=== PATIENT | female | born 1990 | race Caucasian/White ===

== ENCOUNTER 2023-10-20 07:51 | Inpatient (IN) ==
--- OUTSIDE RECORDS SUMMARY | 2023-10-20 08:31 | External Medical Summary | Summary of Care ---
Author Name Unknown Organization [facility] Address [address] [place] [address] Phone [phone] Care Team Providers Care Phlebotomy Support Tech Name Role Phone Bruno Alfaro MD Primary Care Provider + Reason for Visit * Reason Comments Return Visit Encounter Details Date Type Department Care Team (Late st Contact Info) Description 10/10/2023 3:15 PM EDT Office Visit Gynecology/Obstetric s [facility] [address] [facility] [place] [address] Abbie Ascencio MD [address] [facility] [place] [address] 39 weeks gestation of *; Encounter for supervision of normal first in third trimester Allergies No known active allergiesdocumented as of this encounter (statuses as of 10/10/2023) Medications Medication Sig Dispensed Refills Start Date End Date Status 28-0.8 MG Oral Tablet Take by mouth. Active documented as of this encounter (statuses as of 10/10/2023) Active Problems Problem Noted Date Diagnosed Date Encounter for supervision of normal first in third trimester 09/22/2023 Routine general medical exam ination at a health care facility 07/18/2013 Overview: 10/07 pap WNL. No transformation zone. Killian 1-3y. Mood swings w/loestrin. Trial loovral better. Trouble remembering to take, wants Mirena Contraception management 07/18/2013 Estimated Date of Delivery Comme nts Yes 10/13/2023 Based on Ultraso und documented as of this encounter (statuses as of 10/10/2023) Resolved Problems Problem Noted Date Diagnosed Date Resolved Date NO KNOWN PROBLEMS 07/18/2013 documented as of this encounter (statuses as of 10/10/2023) Immunizations Name Administration Dates Next Due HEP A - Hepatitis A (Adult > 18 yrs) 09/17/2008 HPV Vaccine, 4-Valent 06/06/2012, 012,12/08/2011,09/15(Deferred: Patient Refused) Hepatitis A, Ped/Adol., 18 y ear and below, 2-Dose 03/25/2009 Meningococcal Conjugate Vacc ine (Menactra/Menveo) 07/20/2013,09/05/2007 PPD 07/18/2013,12/08/2011 Seasonal Influenza, Split, I IV3, With Preserve, Inj 12/08/2011,01/04/2011,02/02/2010,02/04,02/08/2006 TDAP (age 10 and older)(Boostrix) 08/08/2017 TDAP, Age 7 and older, IM (Adacel) 09/11/2006 documented as of this encounter Social History Tobacco Use Types Packs/Day Years Used Date Smoking Tobacco: Never Smokeless Tobacco: Never Comments:non smoking househo ld Alcohol Use Standard Drinks/Week Comments Yes 0 (1 standard drink = 0.6 oz pur e alcohol) no binge PHQ-2 Answer Date Recorded PHQ-2 Score 0 01/28/2018 Hunger Vital Sign Answer Date Recorded Within the past 12 months, y ou worried that your food would run out before you got the money to buy more. Never true 08/24/19 24 Within the past 12 months, t he food you bought just didn't last and you didn't have money to get more. Never true 08/24/2023 [place] Depression Scale Answer Date Recorded [place] Depression Scale Total 3 09/22/2023 The thought of harming myself has occurred to me . Never 09/22/2023 Childcare Answer Date Recorded Do you feel overwhelmed with taking care of a child, family member or friend? No 08/24/2023 Does your family need help f inding childcare? (Household - for ages 0-17 years) Not on file 08/24/2023 Clothing Answer Date Recorded Have you been unable to get clothing when it was really needed? No 08/24/2023 Is your family able to get c lothes or diapers when needed? (Household - for ages 0-17 years) Not on file 08/24/2023 Personal Safety Answer Date Recorded Do you feel unsafe or have concerns for your saf ety? No 08/24/2023 Do you have concerns for you r family's safety? (Household - for ages 0-17 years) Not on file 08/24/2023 Utilities Answer Date Recorded Do you have trouble paying y our heating, water, or electric bill? No 08/24/2023 Is your family able to pay t he heat, water, or electric bill? (Household - for ages 0-17 years) Not on file 08/24/2023 Does your family have access to good internet? (Household - for ages 0-17 years) Not on file 08/24/2023 Employment Status Answer Date Recorded Are you unemployed or without regular income? No 08/24/2023 Does the household have a re lar source of income? (Household - for ages 0-17 years) Not on file 08/24/2023 Social Connections Answer Date Recorded How often do you feel lonely or isolated from th ose around you? Never 08/24/2023 Financial Resource Strain Answer Date R ecorded Do you have any trouble payi ng for your medications, or do you think you might in the future? No 08/24/2023 Does your family have troubl e paying for medicine? (Household - for ages 0-17 years) Not on file 08/24/2023 Transportation Needs Answer Date Record ed READ ONLY Do you have troubl e getting a ride to medical visits or work? Never True 08/24/2023 Does your family have a hard time getting a ride to doctors visits? (Household - for ages 0-17 years) Not on file 08/24/2023 Has lack of transportation k ept you from medical appointments, meetings, work, or from getting things needed for daily living? Check all that apply. (Adult - for ages 18 years and over) Not on file 08/24/2023 Do you (or your family) have trouble finding or paying for a ride (transportation)? (Household - for ages 0-17 years) Not on file 08/24/2023 Housing Stability Answer Date Recorded Do you currently live in a s helter or have no steady place to sleep at night? No 08/24/2023 READ ONLY Do you think you a re at risk of becoming homeless? No 08/24/2023 Does your family worry about paying for your home or becoming homeless? (Household - for ages 0-17 years) Not on file 0 08/24/2023 Are you homeless or worried that you might be in the future? (Adult - for ages 18 years and over) Not on file Are you (or your family) darnell eless or worried that you might be in the future? (Household - for ages 0-17 years) Not on file Food Insecurity Answer Date Recorded Do you need food for this week? No 08/24/2023 Are you able to get enough f ood for your family? (Household - for ages 0-17 years) Not on file 08/24/2023 Does your family need food t his week? (Household - for ages 0-17 years) Not on file 08/24/2023 Do you always have enough fo od for your family? (Household - for ages 0-17 years) Not on file 08/24/2023 Estimated Date of Delivery Comme nts Yes 10/13/2023 Based on Ultraso und Sex and Gender Information Value Date Recorded Sex Assigned at Female 08/24/2023 1:36 PM EDT Gender Identity Female 08/24/2023 1:36 PM EDT Sexual Orientation Straight 08/24/2023 1: 36 PM EDT Job Start Date Occupation Industry Not on file Not on file Not on file documented as of this encounter Last Filed Vital Signs Vital Sign Reading Time Taken Comments Blood Pressure 112/64 10/10/2023 3:19 PM EDT Pulse - - Temperature - - Respiratory Rate - - Oxygen Saturation - - Inhaled Oxygen Concentration - - Weight 80.3 kg (177 lb) 10/10/2023 3:19 PM EDT Height 175.3 cm (5' 9") 10/10/2023 3:19 PM EDT Body Mass Index 26.14 10/10/2023 3:19 PM EDT documented in this encounter Progress Notes * Abbie Ascencio MD - 10/10/2023 3:15 PM EDT Patient is 33 year old at 39 4/7 weeks who presents for TJ visit Denies contractions, leaking of fluid, or vaginal bleeding. Noted good movement Denies headache, blurry vision, RUQ or epigastric pain. Planning to breastfeed, has pump ordered but has not received yet. Unsure about control . Planning for blood products and epidural in labor. Cramping last night Problem list reviewed BP 112/64 | Ht 1.753 m (5' 9") | Wt 80.3 kg (177 lb) | LMP 12/11/2022 | BMI 26.14 kg/m | BSA 1.98m FH: 38 FHT: 134 Plan: Labor and preeclampsia warnings reviewed IOL scheduled for post dates at [facility] 10/20/2023 RTC 1 weeks V Sonu GTZ PhD documented in this encounter Nursing Notes * Cassie Hdez LPN - 10/10/2023 3:27 PM EDT 39w4d Given iol instructions, scheduled 10/19 Denies concerns. Baby has more hiccups. documented in this encounter Plan of Treatment Upcoming Encounters Date Type Department Care Team (Late st Contact Info) Description 10/18/2023 11:45 AM EDT Office Visit Gynecology/Obstetrics [facility] [address] [place] [address] Mirta Wing PA-C [address] [place] [address] Health Maintenance Due Date Last Done Comments Depression Screening 08/08/2018 08/08/2017 Pap Smear 08/08/2020 08/08/2017, 07/25, 10/24/2013 Cervical Cancer Screening 2022 HPV/Co-Test 2022 COVID-19 Vaccine ( season) 2022 Influenza Vaccine (FLU shot) (#1) 2023 12/08/2011, 01/04/2011, 02/02/2010, Additional history exists DTaP,Tdap,and Td Vaccines (8 - Td or Tdap) 08/09/2027 08/08/2017, 09/11/2006, 06/24/1997, Additional history exists Hepatitis B Vaccine Completed 03/17/1993, 1992, 1992 HPV (Gardasil) Vaccine Completed , 02/08/2012, 12/08/2011 MENINGOCOCCAL (MENACTRA/MENVEO) Aged Out 07/20/2013, 09/05/2007 No longer eligibl e based on patient's age to complete this topic Pneumococcal Vaccine: Pediatrics (0 to 5 Years) and At-Risk Patients (6 to 64 Years) Aged Out No longer eligible based on patient's age to complete this topic documented as of this encounter Medical Devices Not on filedocumented as of this encounter Visit Diagnoses Diagnosis 39 weeks gestation of - Primary state, incidental Encounter for supervision of normal first in third trimester Supervision of normal first documented in this encounter Care Teams Phlebotomy Support Tech Relationship Specialty Start Date End Date Bruno Alfaro MD PCP - General Family Medicine 07/28/15 documented as of this encounter
--- OUTSIDE RECORDS SUMMARY | 2023-10-20 08:31 | External Medical Summary | Summary of Care ---
Author Name Unknown Organization [facility] Address [address] [facility] [place] [address] Phone [phone] Care Team Providers Care Cardiology Teacher Name Role Phone Bruno Alfaro MD Primary Care Provider + Reason for Visit * Reason Comments Return Visit Encounter Details Date Type Department Care Team (Late st Contact Info) Description 10/18/2023 11:45 AM EDT Office Visit Gynecology/Obstetric s Jessy [facility] [address] [place] [address] Mirta Wing PA-C [address] [place] [address] Encounter for supervision of normal first in third trimester* Allergies No known active allergiesdocumented as of this encounter (statuses as of 10/18/2023) Medications Medication Sig Dispensed Refills Start Date End Date Status 28-0.8 MG Oral Tablet Take by mouth. Active documented as of this encounter (statuses as of 10/18/2023) Active Problems Problem Noted Date Diagnosed Date [...] as of this encounter (statuses as of 10/18/2023) Resolved Problems Problem Noted Date Diagnosed Date Resolved Date NO KNOWN PROBLEMS 07/18/2013 documented as of this encounter (statuses as of 10/18/2023) Immunizations Name Administration Dates Next Due HEP [...] money to get more. Never true 08/24/2023 [place] Depression Scale Answer Date Recorded [place] Depression Scale Total 3 09/22/2023 The thought [...] Sign Reading Time Taken Comments Blood Pressure 98/62 10/18/2023 11:50 AM EDT Pulse - - Temperature - - Respiratory Rate - - Oxygen Saturation - - Inhaled Oxygen Concentration - - Weight 80.3 kg (177 lb) 10/18/2023 11:50 AM EDT Height - - Body Mass Index 26.14 10/10/2023 3:19 PM EDT documented in this encounter Progress Notes * Mirta Wing PA-C - 10/18/2023 12:05 PM EDT 40w5d No complaints. Ready for delivery. Has IOL scheduled in 2 days. No contractions, LOF, VB. Baby is active. Has information she needs for IOL. Defers cervical check today upon offering to patient. RTC for PP visits. Labor precautions. Mirta Wing PA-C * Yamini Hernandez MED ASSIST - 10/18/2023 11:50 AM EDT 40w5d Denies vaginal bleeding/rom + movements Pelvic cramping No concerns documented in this encounter Plan of Treatment Health Maintenance Due Date Last Done Comments [...] 03/17/1993, 1992, 1992 HPV (Gardasil) Vaccine Completed 3, 02/08/2012, 12/08/2011 MENINGOCOCCAL (MENACTRA/MENVEO) Aged Out 07/20/2013, [...] as of this encounter Visit Diagnoses Diagnosis Encounter for supervision of normal first in third trimester- Primary Supervision of normal first documented in this encounter Care Teams Cardiology Teacher Relationship Specialty Start Date End Date Bruno Alfaro MD PCP - General Family Medicine 07/28/15 documented as of this encounter
--- OUTSIDE RECORDS SUMMARY | 2023-10-20 08:32 | External Medical Summary | Summary of Care ---
Author Name Unknown Organization [facility] Address [address] [place] [address] Phone [phone] Care Team Providers Care Fans Clerk Name Role Phone Bruno Alfaro MD Primary Care Provider + Encounter Details Date Type Department Care Team (Late st Contact Info) Description 09/29/2023 Telephone Gynecology/Obstetrics [facility] [address] [place] [address] Mirta Wing PA-C [address] [place] [address] Allergies No known active allergiesdocumented as of this encounter (statuses as of 09/29/2023) Medications Medication Sig Dispensed Refills Start Date End Date Status 28-0.8 MG Oral Tablet Take by mouth. Active documented as of this encounter (statuses as of 09/29/2023) Active Problems Problem Noted Date Diagnosed Date [...] as of this encounter (statuses as of 09/29/2023) Resolved Problems Problem Noted Date Diagnosed Date Resolved Date NO KNOWN PROBLEMS 07/18/2013 documented as of this encounter (statuses as of 09/29/2023) Immunizations Name Administration Dates Next Due HEP [...] money to get more. Never true 08/24/2023 [place] Depression Scale Answer Date Recorded [place] Depression Scale Total 3 09/22/2023 The thought [...] No 08/24/2023 Does the household have a [facility] source [facility]? (Household - for ages [...] on file documented as of this encounter Plan of Treatment Upcoming Encounters Date Type Department Care Team (Late st Contact Info) Description 10/06/2023 10:45 AM EDT Office Visit Gynecology/Obstetrics [facility] [address] [place] [address] Mirta Wing PA-C [address] [place] [address] Health Maintenance Due Date Last Done Comments [...] Not on filedocumented as of this encounter Care Teams Fans Clerk Relationship Specialty Start Date End Date Bruno Alfaro MD PCP - General Family Medicine 07/28/15 documented as of this encounter
--- OUTSIDE RECORDS SUMMARY | 2023-10-20 08:32 | External Medical Summary ---
Author Name Unknown Address Unknown Organization [facility] - [address] [place] [address] Laboratory Report Ordering Provider Test Date Status REBECCA ARMSTRONG 09/22/2023 15:04:36 Final Observation Date Value Abnormality Reference (Units ) Status Hep C Ab 09/22/2023 15:04:36 Negative Negative Final Further HCV quantitative erica ting not performed per protocol. Performing Location [facility] - [address] [place] [id number]
--- OUTSIDE RECORDS SUMMARY | 2023-10-20 08:32 | External Medical Summary | Summary of Care ---
Author Name Unknown Organization [facility] Address [address] [place] [address] Phone [phone] Care Team Providers Care Marketing Professional Name Role Phone Bruno Alfaro MD Primary Care Provider + Reason for Visit * Reason Onset Date Comments Initial Visit 08/09/2023 Encounter Details Date Type Department Care Team (Late st Contact Info) Description 08/09/2023 Telephone Gynecology/Obstetrics [facility] [address] [place] [address] Services, Scheduling [address] [place] [address] Initial Visit Allergies No known active allergiesdocumented as of this encounter (statuses as of 08/10/2023) Medications Medication Sig Dispensed Refills Start Date End Date Status fexofenadine (SUSANNAH) 180 MG TabletIndications:S easonal allergic rhinitis due to pollen Take 1 Tab by mouth daily as needed for Allergies. 30 Tab 11 08/08/2017 Active fluticasone (FLONASE) 50 MCG/ACT nasal sprayIndications:Se asonal allergic rhinitis due to pollen Administer 2 Sprays into each nostril daily. 1 Inhaler 5 08/08/2017 Active documented as of this encounter (statuses as of 08/10/2023) Active Problems Problem Noted Date Diagnosed Date Routine general medical exam ination at a health care facility 07/18/2013 Overview: 10/07 pap WNL. No transformation zone. Killian 1-3y. Mood swings w/loestrin. Trial loovral better. Trouble remembering to take, wants Mirena Contraception management 07/18/2013 documented as of this encounter (statuses as of 08/10/2023) Resolved Problems Problem Noted Date Diagnosed Date Resolved Date NO KNOWN PROBLEMS 07/18/2013 documented as of this encounter (statuses as of 08/10/2023) Immunizations Name Administration Dates Next Due HEP A - Hepatitis A (Adult > 18 yrs) 09/17/2008 HPV Vaccine, 4-Valent 06/06/2012, 012,12/08/2011,09/15(Deferred: Patient Refused) Hep A - Hepatitis A (ped/ado le, 1-18 Yrs) 03/25/2009 Meningococcal Conjugate Vacc ine (Menactra/Menveo) 07/20/2013,09/05/2007 PPD 07/18/2013,12/08/2011 Seasonal Influenza, Split, I IV3, With Preserve, Inj 12/08/2011,01/04/2011,02/02/2010,02/04,02/08/2006 TDAP (age 10 and older)(Boostrix) 08/08/2017 TDAP (age 11 and older)(Adacel) 09/11/2006 documented as of this encounter Social History Tobacco Use Types Packs/Day Years Used Date Smoking Tobacco: Never Smokeless Tobacco: Never Comments:non smoking househo ld Alcohol Use Standard Drinks/Week Comments Yes 0 (1 standard drink = 0.6 oz pur e alcohol) no binge PHQ-2 Answer Date Recorded PHQ-2 Score 0 01/28/2018 Sex and Gender Information Value Date Recorded Sex Assigned at Not on file Gender Identity Not on file Sexual Orientation Not on file documented as of this encounter Miscellaneous Notes * Telephone Encounter - Yamini Hernandez MED ASSIST - 08/10/2023 11:41 AM EDT Appts scheduled * Telephone Encounter - Mayuri Moreira OSA - 08/09/2023 1:57 PM EDT LMOM * Telephone Encounter - Genoveva Frazier RN - 08/09/2023 11:11 AM EDT Patient will need scheduled for NOB phone intake and in person NOB visit. Please try and schedule the week of September 12, or soonest available that she can make work. Patient will need to bring all her current records with her, or have them faxed over prior to appts. * Telephone Encounter - Leah Fajardo OSA - 08/09/2023 10:48 AM EDT Pt is transferring care from [place], [place]. Approx due date October 12. Please assist with scheduling. Pt will be here next month end of August. documented in this encounter Plan of Treatment Upcoming Encounters Date Type Department Care Team (Late st Contact Info) Description 09/05/2023 1:00 PM EDT Nurse Only Gynecology/Obstetrics [facility] [address] [place] [address] Gw, Nurse Vp [facility] [address] [place] [address] 09/22/2023 4:30 PM EDT Office Visit Gynecology/Obstetrics Jessy Cantu [address] [place] [address] Mirta Wing PA-C [address] [place] [address] Health Maintenance Due Date Last Done Comments Hepatitis C Screening 2010 Depression Screening 08/08/2018 08/08/2017 Pap Smear 08/08/2020 08/08/2017, 07/25, 10/24/2013 Cervical Cancer Screening 2022 HPV/Co-Test 2022 COVID-19 Vaccine ( season) 2022 Influenza Vaccine (FLU shot) (Season Ended) 2023 12/08/2011, 01/04/2011, 02/02/2010, Additional history exists DTaP,Tdap,and Td Vaccines (8 - Td or Tdap) 08/09/2027 08/08/2017, 09/11/2006, 06/24/1997, Additional history exists Hepatitis B Completed 03/17/1993, 06/26, 1992 GARDASIL-HPV IMMUNIZATION SERIES Completed 06/06/2012, 02/08/2012, 12/08/2011 MENINGOCOCCAL (MENACTRA/MENVEO) Aged Out 07/20/2013, 09/05/2007 No longer eligibl e based on patient's age to complete this topic Pneumococcal Vaccine: Pediatrics (0 to 5 Years) and At-Risk Patients (6 to 64 Years) Aged Out No longer eligible based on patient's age to complete this topic documented as of this encounter Medical Devices Not on filedocumented as of this encounter Care Teams Marketing Professional Relationship Specialty Start Date End Date Bruno Alfaro MD PCP - General Family Medicine 07/28/15 documented as of this encounter
--- OUTSIDE RECORDS SUMMARY | 2023-10-20 08:32 | External Medical Summary | Summary of Care ---
Author Name Unknown Organization [facility] Address [address] [place] [address] Phone [phone] Care Team Providers Care Jewel Stripper Name Role Phone Bruno Alfaro MD Primary Care Provider + Reason for Visit * Reason Comments New Visit Encounter Details Date Type Department Care Team (Late st Contact Info) Description 09/22/2023 2:30 PM EDT Office Visit Gynecology/Obstetric s [facility] [address] [place] [address] Mirta Wing PA-C [address] [place] [address] Encounter for supervision of normal first in third trimester* Allergies No known active allergiesdocumented as of this encounter (statuses as of 09/22/2023) Medications Medication Sig Dispensed Refills Start Date End Date Status 28-0.8 MG Oral Tablet Take by mouth. Active documented as of this encounter (statuses as of 09/22/2023) Active Problems Problem Noted Date Diagnosed Date [...] as of this encounter (statuses as of 09/22/2023) Resolved Problems Problem Noted Date Diagnosed Date Resolved Date NO KNOWN PROBLEMS 07/18/2013 documented as of this encounter (statuses as of 09/22/2023) Immunizations Name Administration Dates Next Due HEP [...] money to get more. Never true 08/24/2023 Childcare Answer Date Recorded Do you feel [...] No 08/24/2023 Does the household have a [facility] source [facility] income? (Household - for [...] Sign Reading Time Taken Comments Blood Pressure 108/62 09/22/2023 2:35 PM EDT Pulse - - Temperature - - Respiratory Rate - - Oxygen Saturation - - Inhaled Oxygen Concentration - - Weight 78.1 kg (172 lb 3.2 oz) 09/22/2023 2:35 P M EDT Height 175.3 cm (5' 9") 09/22/2023 2:35 PM EDT Body Mass Index 25.43 09/22/2023 2:35 PM EDT documented in this encounter Progress Notes * Mirta Wing PA-C - 09/22/2023 2:39 PM EDT CC: NOB HPI: Trena Pires is a 33 year old female here for initial OB exam. TONI 10/13/2023 by first trimester ultrasound at outside network. Radiology report reviewed. She is transferring care from [place] provider as recently moved to [place]. Had first trimester ultrasound that showed viable IUP at 6w6d with TONI of 10/13/2023. has been uncomplicated. Reviewed labs as follows through records: NOB labs HIV 1/2 Ag/AB non-reactive RPR non-reactive Rubella Ab reactive Hep B ag non reactive Hgb 12.7 Blood type A positive Anatomy complete per patient and WNL although cannot see records. Has anterior placenta per patient. Third tri labs completed 07/21/23: Hgb 11.7 GDM screen normal at 89 GBS done 09/18/2023: negative Pap smear completed 08/2022 through [facility] provider and normal. Patient does not have history of abnormal pap smears. Hep C AB not seen through records. Will obtain. She received TDaP. 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 (Adult - for ages 18 years and over): No Food Insecurity: No Food Insecurity (08/24/2023) Food Insecurity Do you need food for this week? (Adult - for ages 18 years and over): No Transportation Needs: No Transportation Needs (08/24/2023) Transportation Needs Do you have trouble getting a ride to medical visits or work? (Adult - for ages 18 years and over):Never True Social Connections: Socially Integrated (08/24/2023) Social Connections How often do you feel lonely or isolated from those around you? (Adult - for ages 18 years and over): Never Housing Stability: Low Risk (08/24/2023) Housing Stability Do you currently live in a mcfp or have no steady place to sleep at night? (Adult - for ages 18 years and over): No Do you think you are at risk of becoming homeless? (Adult - for ages 18 years and over): No Past Surgical History: Procedure Laterality Date DENTAL SURGERY PROCEDURE NEC Current Outpatient Medications Medication Sig Dispense Refill 28-0.8 MG Oral Tablet Take by mouth. No current facility-administered medications for this visit. Review of patient's allergies indicates: No Known Allergies Family History Problem Relation Name Age of Onset No Past Hx Mother no cancer, heart No Past Hx Father No Past Hx Brother Hypertension Grandmother (Maternal) Hypertension Grandfather (Maternal) ROS: General: no fevers, chills CV: no chest pain, SOB GI: no constipation, diarrhea Breast: no masses, nipple discharge, + nausea : no vaginal bleeding, unusual vaginal discharge, dysuria Psychological: no anxiety, depression, SI/HI Denies LOF, VB, contractions. Pos FM. PHYSICAL EXAM: please see physical FH: 37 cm FHT: 150's Cephalic ASSESSMENT/PLAN: Encounter for supervision of normal first in third trimester (Primary) Transfer of care at 37 weeks. Lived in [place], moved back to [place] to be closer to family. FOB, spouse. Aware of [facility] delivery location and given labor instructions. Reviewed labs through records. No Hep C, so will obtain. GDM screen done and normal. TDaP completed. GBS done at 36 weeks and negative. RTC in 1 week - HEPATITIS C ANTIBODY SCREEN WITH PROGRESSION TO HEPATITIS C RNA QUANTITATIVE; Future; Expected date: 09/22/2023 Follow Up: Return in about 1 week (around 09/29/2023), or if symptoms worsen or fail to improve, for Return visit. | For: Return visit | Check-out note: Please arrive at lab Mirta Wing PA-C documented in this encounter Nursing Notes * Genoveva Frazier RN - 09/22/2023 2:36 PM EDT Patient here for NOB transfer of care from [place] + No leaking/bleeding No contractions Genoveva Frazier, RN documented in this encounter Plan of Treatment Upcoming Encounters Date Type Department Care Team (Late st Contact Info) Description 09/29/2023 10:45 AM EDT Office Visit Gynecology/Obstetrics Jessy Cantu [address] [place] [address] Mirta Wing PA-C [address] [place] [phone] Pending Results Name Type Priority Associated Diagnoses Date /Time HEPATITIS C ANTIBODY SCREEN WITH PROGRESSION TO HEPATITIS C RNA QUANTITATIVE Lab Routine Encounter for supervision of normal first in third trimester 09/22/2023 3:04 PM EDT Scheduled Orders Name Type Priority Associated Diagnoses Orde r Schedule HEPATITIS C ANTIBODY SCREEN WITH PROGRESSION TO HEPATITIS C RNA QUANTITATIVE Lab Routine Encounter for supervision of normal first in third trimester Expected: 09/22/2023, Expires: 09/21/2024 Health Maintenance Due Date Last Done Comments [...] first documented in this encounter Care Teams Jewel Stripper Relationship Specialty Start Date End Date Bruno Alfaro MD PCP - General Family Medicine 07/28/15 documented as of this encounter
--- OUTSIDE RECORDS SUMMARY | 2023-10-20 08:32 | External Medical Summary | Summary of Care ---
Author Name Unknown Organization [facility] Address [address] [place] [address] Phone [phone] Care Team Providers Care Event Management Consultant Name Role Phone Bruno Alfaro MD Primary Care Provider + Reason for Visit * Reason Comments New Visit Encounter Details Date Type Department Care Team (Late st Contact Info) Description 09/05/2023 1:00 PM EDT Nurse Only Gynecology/Obstetrics [facility] [address] [place] [address] Gw, Nurse Design Lead [facility] [address] [place] [address] New Visit Allergies No known active allergiesdocumented as of this encounter (statuses as of 09/05/2023) Medications Medication Sig Dispensed Refills Start Date End Date Status 28-0.8 MG Oral Tablet Take by mouth. Active fexofenadine (SUSANNAH) 180 MG TabletIndication s:Seasonal allergic rhinitis due to pollen Take 1 Tab by mouth daily as needed for Allergies. 30 Tab 11 08/08/2017 09/05/2023 Discontinued (Medication List Clean Up) fluticasone (FLONASE) 50 MCG/ACT nasal sprayIndications :Seasonal allergic rhinitis due to pollen Administer 2 Sprays into each nostril daily. 1 Inhaler 5 08/08/2017 09/05/2023 Discontinued (Medication List Clean Up) documented as of this encounter (statuses as of 09/05/2023) Active Problems Problem Noted Date Diagnosed Date Routine general medical exam ination at a health care facility 07/18/2013 Overview: 10/07 pap WNL. No transformation zone. Killian 1-3y. Mood swings w/loestrin. Trial loovral better. Trouble remembering to take, wants Mirena Contraception management 07/18/2013 Estimated Date of Delivery Comme nts Yes 10/13/2023 documented as of this encounter (statuses as of 09/05/2023) Resolved Problems Problem Noted Date Diagnosed Date Resolved Date NO KNOWN PROBLEMS 07/18/2013 documented as of this encounter (statuses as of 09/05/2023) Immunizations Name Administration Dates Next Due HEP [...] money to get more. Never true 08/24/2023 Estimated Date of Delivery Comme nts Yes 10/13/2023 Sex and Gender Information Value Date Recorded Sex Assigned at Female 08/24/2023 1:36 PM EDT Gender Identity Female 08/24/2023 1:36 PM EDT Sexual Orientation Straight 08/24/2023 1: 36 PM EDT documented as of this encounter Last Filed Vital Signs Vital Sign Reading Time Taken Comments Blood Pressure - - Pulse - - Temperature - - Respiratory Rate - - Oxygen Saturation - - Inhaled Oxygen Concentration - - Weight 76.2 kg (168 lb) 09/05/2023 1:04 PM EDT Height 175.3 cm (5' 9") 09/05/2023 1:04 PM EDT Body Mass Index 24.81 09/05/2023 1:04 PM EDT documented in this encounter Plan of Treatment Upcoming Encounters Date Type Department Care Team (Late st Contact Info) Description 09/22/2023 4:30 PM EDT Office Visit Gynecology/Obstetrics Jessy Cantu [address] [place] [address] Mirta Wing PA-C [address] [place] [address] Health Maintenance Due Date Last Done Comments [...] filedocumented as of this encounter Care Teams Event Management Consultant Relationship Specialty Start Date End Date Bruno Alfaro MD PCP - General Family Medicine 07/28/15 documented as of this encounter
--- OUTSIDE RECORDS SUMMARY | 2023-10-20 08:32 | External Medical Summary | Summary of Care ---
Author Name Unknown Organization [facility] Address [address] [facility] [place] [address] Phone [phone] Care Team Providers Care Adjunct Professor Of [employer] History Name Role Phone Bruno Alfaro MD Primary Care Provider + Reason for Visit * Reason Comments Return Visit Encounter Details Date Type Department Care Team (Late st Contact Info) Description 09/29/2023 10:45 AM EDT Office Visit Gynecology/Obstetric s [facility] Cant[facility] [address] [place] [address] Mirta Wing PA-C [address] [place] [address] Encounter for supervision of normal first in [...] money to get more. Never true 08/24/2023 [place] Depression Scale Answer Date Recorded [place] Depression Scale Total 3 09/22/2023 The thought [...] Sign Reading Time Taken Comments Blood Pressure 98/64 09/29/2023 10:44 AM EDT Pulse - - Temperature - - Respiratory Rate - - Oxygen Saturation - - Inhaled Oxygen Concentration - - Weight 78.9 kg (174 lb) 09/29/2023 10:44 AM EDT Height 175.3 cm (5' 9") 09/29/2023 10:44 AM EDT Body Mass Index 25.7 09/29/2023 10:44 AM EDT documented in this encounter Progress Notes * Mirta Wing PA-C - 09/29/2023 10:49 AM EDT 38w0d Doing well, no concerns. Denies VB, LOF, contractions. Baby is active. Would like to discussed postdated IOL. Reviewed with her timing and general method. We discussed induction process is however based on several factors. She was understanding. Scheduled at 41w0d, for 10/20/2023 at [place]. Labor precautions. RTC in 1 week Mirta Wing PA-C documented in this encounter Nursing Notes * Cassie Hdez LPN - 09/29/2023 10:47 AM EDT 38w0d Denies concerns documented in this encounter Plan of Treatment Upcoming Encounters Date Type Department Care Team (Late st Contact Info) Description 10/06/2023 10:45 AM EDT Office Visit Gynecology/Obstetrics [facility] [address] [place] [address] Mirta Wing PA-C [address] [place] [address] Health Maintenance Due Date Last Done Comments [...] first documented in this encounter Care Teams Adjunct Professor Of U.S. History Relationship Specialty Start Date End Date Bruno Alfaro MD PCP - General Family Medicine 07/28/15 documented as of this encounter
--- OUTSIDE RECORDS SUMMARY | 2023-10-20 08:32 | External Medical Summary | Summary of Care ---
Author Name Unknown Organization [facility] Address [address] [place] [address] Phone [phone] Care Team Providers Care Water Conservationist Name Role Phone Bruno Alfaro MD Primary Care Provider + Encounter Details Date Type Department Care Team (Late st Contact Info) Description 09/21/2023 Orders Only Family Practice [facility] [address] [place] [address] Bruno Alfaro MD [address] [place] [address] Allergies No known active allergiesdocumented as of this encounter (statuses as of 09/21/2023) Medications Medication Sig Dispensed Refills Start Date End Date Status 28-0.8 MG Oral Tablet Take by mouth. Active documented as of this encounter (statuses as of 09/21/2023) Active Problems Problem Noted Date Diagnosed Date Routine general medical exam ination at a health care facility 07/18/2013 Overview: 10/07 pap WNL. No transformation zone. Killian 1-3y. Mood swings w/loestrin. Trial loovral better. Trouble remembering to take, wants Mirena Contraception management 07/18/2013 Estimated Date of Delivery Comme nts Yes 10/13/2023 documented as of this encounter (statuses as of 09/21/2023) Resolved Problems Problem Noted Date Diagnosed Date Resolved Date NO KNOWN PROBLEMS 07/18/2013 documented as of this encounter (statuses as of 09/21/2023) Immunizations Name Administration Dates Next Due HEP [...] 08/24/2023 Does the household have a re gular source of income? (Household - for ages [...] Description 09/22/2023 2:30 PM EDT Office Visit Gynecology/Obstetrics [facility] [address] [place] [address] Mirta Wing PA-C [address] [place] [address] Health Maintenance Due Date Last Done Comments [...] Not on filedocumented as of this encounter Procedures Procedure Name Priority Date/Time Associated Diagnosis Comments CHEMISTRY-OUTSIDE Routine 07/21/2023 documented in this encounter Results * (ABNORMAL) CHEMISTRY-OUTSIDE (07/21/2023) Not all results display below - see scan for full detail OUTSIDE LAB (SEE SCANNED REPORT) Comment:SEE CAN; CBCD, GESTA TIONAL DIABETES CREATININE-OUTSID E LAB OUTSIDE LAB (SEE SCANNED REPORT) EGFR-OUTSIDE LAB OUT SIDE LAB (SEE SCANNED REPORT) POTASSIUM-OUTSIDE LAB OUTSIDE LAB (SEE SCANNED REPORT) GLUCOSE-OUTSIDE LAB OUTSIDE LAB (SEE SCANNED REPORT) HOURS FASTING OUTSID E LAB (SEE SCANNED REPORT) TRIGLYCERIDES-OUT SIDE LAB OUTSIDE LAB (SEE SCANNED REPORT) CHOLESTEROL-OUTSI DE LAB OUTSIDE LAB (SEE SCANNED REPORT) HDL-OUTSIDE LAB OUTS BRIAN LAB (SEE SCANNED REPORT) CHOL/HDL RATIO-OUTSIDE LAB OUTSIDE LA B (SEE SCANNED REPORT) LDL (CALCULATED)-OUTS BRIAN LAB OUTSIDE LAB (SEE SCANNED REPORT) LDL (DIRECT MEASURE)-OUTSIDE LAB OUTSIDE LAB (SEE SCANNED REPORT) HEMOGLOBIN, [id number]-[id number] LAB OUTSIDE LAB (SEE SCANNED REPORT) PHOSPHORUS-OUTSID E LAB OUTSIDE LAB (SEE SCANNED REPORT) PTH-OUTSIDE LAB OUTS BRIAN LAB (SEE SCANNED REPORT) MICROALBUMIN RATIO-OUTSIDE LAB OUTSIDE LA B (SEE SCANNED REPORT) PROTEIN, UA-OUTSIDE LAB OUTSIDE LAB (SEE SCANNED REPORT) HGB 11.7(L) 12.0 - 16.0 G/DL OUTSIDE LAB (SEE SCANNED REPORT) 07/21/2023 History Per Patient LABORATORY OUTSIDE LAB (SEE SCANNED REPORT) documented in this encounter Care Teams Water Conservationist Relationship Specialty Start Date End Date Bruno Alfaro MD PCP - General Family Medicine 07/28/15 documented as of this encounter
[2023-10-20] MEDS ORDERED: CALCIUM CARBONATE 500 MG CHEWABLE TAB PO PRN (09:01)
[2023-10-20] MEDS ORDERED: LIDOCAINE 1% LOCAL 20 ML VIAL INFIL PRN (09:01)
[2023-10-20] MEDS: DINOPROSTONE 10 MG INSERT PV ONE (09:33)
--- NOTE | 2023-10-20 09:48 | History & Physical Report ---
Date of Service October 20, 2023 Assessment & Plan (1) Post-term , 40-42 weeks of gestation: Plan: 37-year-old -0-1-0 at 41 weeks, scheduled induction of labor for postdates, Vital signs stable, afebrile, No medical problems, heart rate reassuring, GBS negative, Cervix unfavorable, Cervidil is placed for cervical ripening, discussed back to expect for induction of labor, all questions were answered, Continue to monitor. (2) Encounter for induction of labor: Admission and Anticipated Discharge Date Admission Date: October 20, 2023 History of Present Illness Primary Care Provider: Abbie Ga DO Patient is a 33-year-old G [id number] at 41 weeks of gestation who was scheduled for induction of labor for postdates. She has no complaints, she denies contractions, leakage of fluid, vaginal bleeding. She reports good movements. Her has been uncomplicated, GBS negative. She moved from [place] and started her care here around 34 weeks. Allergies Allergy/AdvReac Type Severity Reaction Status Date / Time No Known Allergies Allergy Verified 10/20/23 08:13 Home Medications Medication Instructions Recorded Confirmed Type [id number]-[id number]-[id number] 1 mg 1 tab PO DAILY 10/20/23 10/20/23 History tablet Patient History Medical History No known health problems Surgical History No history of previous surgery Family History Grandmother (Paternal) Cancer Social History Smoking Status: Never smoker Hx Alcohol Use: No Hx Substance Use: No Preferred Language: Uzbek Systems Lead Required: No Beliefs That Will Affect Care: None marital status: Current Living Situation: Spouse Current Living Situation Comment: lives with and dogs Other Information That Helps Us Care for You: No Feels Safe at Home: Yes Safety Concerns: Feels Safe At This Time Assistive Devices: None OB History history of 1 SAB ENGAGEMENT MGR History No history of STDs, no history of chlamydia, gonorrhea, herpes Review of Systems as per Subjective / HPI Physical Exam Constitutional: WD/WN, vitals as above well developed, well nourished and comfortable Gastrointestinal (Abdomen): normal bowel sounds, soft, nontender, no hepatosplenomegaly ( Tone 8-9 lb) Genitourinary: normal external appearance OB Exam Abdomen: + vertex Manual OB Exam: + cervical dilation fingertip, + cervical effacement 20% and + station high ( posterior) bedside ultrasound performed, vertex presentation, placenta anterior, AFV normal, EFW 3928 g Results & Data Vital Signs (Past 12 Hours) Vital Signs Temp Pulse Resp BP 10/20/23 08:10 36.9 C 16 10/20/23 08:06 72 115/65
[2023-10-20 10:38] LABS: Hematocrit (blood only) 31.6 % (37.0-47.0); Hemoglobin 10.3 g/dl (12.0-16.0); Mean Corpuscular Hemoglobin 29.6 pg (25.0-34.0); Mean Corpuscular Hgb Conc 32.6 g/dL (32.0-36.0); Mean Corpuscular Volume 90.8 fL (80.0-100.0); Mean Platelet Volume 11.4 fL (9.4-12.4); Platelet Count 216 K/uL (130-400); RDW Coefficient of Variation 13.9 % (11.5-14.5); RDW Standard Deviation 45.7 fL (36.4-46.3); Red Blood Count 3.48 M/uL (4.20-5.40); White Blood Count 8.03 K/ul (4.8-10.8)
[2023-10-20 16:25] LABS: Chlam trach RNA(Genit,Ureth,Ur Not Detected (NotDetected); GC(Neis gon)RNA(Genit,Ureth,Ur Not Detected (NotDetected)
--- NOTE | 2023-10-20 18:16 | Obstetrical Progress Note ---
Date of Service October 20, 2023 Assessment & Plan Admission and Anticipated Discharge Date Admission Date: October 20, 2023 Subjective Patient is reevaluated. She feels well started to feel mild irregular c ontractions. They are not painful she feels them as mild cramps. No leakage of fluid or vaginal bleeding. She reports good movements. heart rate had been category 1, contractions every 3 to 5 minutes patient does not feel them all. Continue to monitor closely discussed possible plan tonight depending on her cervix after surgery is out. All questions were answered. Results & Data Vital Signs (Past 12 Hours) Vital Signs Temp Pulse Resp BP 10/20/23 15:38 77 120/66 10/20/23 15:37 16 10/20/23 15:37 36.7 C 16 10/20/23 11:31 37.2 C 73 18 113/61 10/20/23 08:10 36.9 C 16 10/20/23 08:06 72 115/65
[2023-10-20] MEDS: miSOPROStoL 50 MCG TAB PO SCH (23:00)
--- NOTE | 2023-10-21 00:20 | Obstetrical Progress Note ---
Date of Service October 21, 2023 Assessment & Plan Admission and Anticipated Discharge Date Admission Date: October 20, 2023 Subjective Patient is reevaluated Cervidil cam eout at 9:30 PM, she took shower, ate dinner and recevied PO Cytotec around 11 pm Feels more painful contractions, q 3-4 min, pain is 6/10 FHR categ I Horicon ctxs 1-4 min VE; 3/ 60%/ -2, head is lower but cervix is posterior Patient desires to walk for now and considering to take Stadol for pain Continue to monitor closey Results & Data Vital Signs (Past 12 Hours) Vital Signs Temp Pulse Resp BP 10/20/23 21:47 36.7 C 64 18 116/70 10/20/23 19:01 71 118/57 L 10/20/23 19:00 18 10/20/23 19:00 36.6 C 18 10/20/23 15:38 77 120/66 10/20/23 15:37 16 10/20/23 15:37 36.7 C 16
[2023-10-21] MEDS: BUTORPHANOL TARTRATE 2 MG/ML VIAL IV PRN (01:04)
[2023-10-21] MEDS: LACTATED RINGER'S 1,000 ML IV PRN (02:11)
[2023-10-21] MEDS ORDERED: SODIUM CHLORIDE 0.9% PF INJ 10 ML VIAL EPI PRN (05:48)
[2023-10-21] MEDS ORDERED: ePHEDrine sulfate 50 MG/ML AMP IV PRN (05:48)
[2023-10-21] MEDS ORDERED: fentaNYL citrate PF 100 MCG/2 ML VIAL EPI PRN (05:48)
[2023-10-21] MEDS ORDERED: NALBUPHINE HCL 5 MG in SYRINGE 0 ML IV PRN (05:48)
[2023-10-21] MEDS ORDERED: ROPIVACAINE 0.5% PF 5 MG/ML 20 ML VIAL EPI PRN (05:48)
[2023-10-21] MEDS ORDERED: NALOXONE HCL 0.4 MG/1 ML VIAL/CARP IV PRN (05:48)
[2023-10-21] MEDS ORDERED: NALOXONE HCL 1 MG in SODIUM CHLORIDE 0.9% 1,000 ML IV PRN (05:48)
[2023-10-21] MEDS ORDERED: BUPIVACAINE 0.25% PF 30 ML VIAL EPI PRN (05:48)
[2023-10-21] MEDS ORDERED: ONDANSETRON INJ 2 MG/ML 2 ML VIAL IV PRN (05:48)
[2023-10-21] MEDS ORDERED: diphenhydrAMINE 50 MG/ML VIAL IV PRN (05:48)
[2023-10-21] MEDS ORDERED: LIDOCAINE 2% MPF LOCAL 5 ML VIAL EPI PRN (05:48)
--- NOTE | 2023-10-21 05:50 | Anesthesiology Consultation ---
Date of Service October 21, 2023 Assessment & Plan (1) Encounter for pre-operative examination: Chart Review Chart Review: Patient NOT seen in Pre Admission Testing and Acceptable Risk for Labor Epidural Consults Requested none History Height/Weight Height: 5 ft 9 in Weight: 80.286 kg Allergies Allergy/AdvReac Type Severity Reaction Status Date / Time No Known Allergies Allergy Verified 10/20/23 08:13 Medications Home Medications Medication Instructions Recorded Confirmed Last Taken [id number]-[id number]-FA 1 mg 1 tab PO DAILY 10/20/23 10/20/23 10/20/23 tablet Active Medications Generic Name Dose Route Start Last Admin Trade Name Freq PRN Reason Stop Dose Admin Butorphanol Tartrate 1 mg 10/20/23 18:16 10/21/23 01:04 Butorphanol Tartrate 2 Mg/Ml Vial IV 11/19/23 18:15 1 mg Q2H PRN Administration Pain Lactated Ringer's 1,000 mls @ 150 mls/hr 10/20/23 09:01 10/21/23 02:11 Lr IV 10/22/23 09:00 150 mls/hr .[id number] PRN Administration L&D Protocol Protocol Misoprostol 50 mcg 10/20/23 23:00 10/21/23 03:02 Misoprostol 50 Mcg Tab PO 11/19/23 22:59 50 mcg Q4H RAYNE Administration Past Medical History Medical History (Updated 10/21/23 @ 05:50 by Jose Art MD) Encounter for pre-operative examination No known health problems Exercise / Class Metabolic Activity II 4-5 Yardwork/Stairs/Walk up hill Past Family History Family History Grandmother (Paternal) Cancer Past Surgical History Surgical History No history of previous surgery Past Anesthesia History No Hx of Anesthesia Complications and No Family Hx of Anesthesia Complications Social History Smoking Status: Never smoker Hx Alcohol Use: No Hx Substance Use: No substance use type: does not use Physical Exam Vital Signs Last Vital Signs Temp 36.6 C 10/21/23 03:03 Pulse 65 10/21/23 06:10 Resp 20 10/21/23 03:03 BP 130/83 10/21/23 06:10 Pulse Ox 98 10/21/23 06:07 Testing Laboratory Results 10/20/23 09:00
[2023-10-21] MEDS: BUPIVACAINE 0.25% PF 30 ML VIAL ONE (06:13)
[2023-10-21] MEDS: fentaNYL citrate PF 100 MCG/2 ML VIAL ONE (06:13)
[2023-10-21] MEDS: LIDOCAINE 2%/EPINEPHRINE 1:200,000 20 ML PF ONE (06:13)
[2023-10-21] MEDS: fentANYL 2 MCG/ML BUPIVacaine 0.125%-NSS 100ML BAG ONE (06:14)
[2023-10-21] MEDS: SODIUM CHLORIDE 0.9% PF INJ 10 ML VIAL ONE (06:14)
[2023-10-21] MEDS: SODIUM CHLORIDE 0.9% PF INJ 10 ML VIAL EPI STA (06:31)
[2023-10-21] MEDS: BUPIVACAINE 0.25% PF 30 ML VIAL EPI STA (06:31)
[2023-10-21] MEDS: LIDOCAINE 2%/EPINEPHRINE 1:200,000 20 ML PF EPI STA (06:31)
[2023-10-21] MEDS: fentaNYL citrate PF 100 MCG/2 ML VIAL EPI STA (06:31)
[2023-10-21] MEDS: OXYTOCIN 30 UNITS/NSS 30 UNITS/500 ML BAG IV PRN ×2 (07:01→15:38)
[2023-10-21] MEDS ORDERED: Nursing to Pharmacy Communication SCH (12:45)
[2023-10-21] MEDS: fentANYL 2 MCG/ML BUPIVacaine 0.125%-NSS 100ML BAG EPI PRN (13:39)
[2023-10-21] MEDS: METHYLERGONOVINE MALEATE 0.2 MG/ML AMP IM PRN (15:07)
[2023-10-21] MEDS: CARBOPROST TROMETHAMINE 250 MCG/ML AMPUL ONE (15:11)
[2023-10-21] MEDS ORDERED: METHYLERGONOVINE MALEATE 0.2 MG/ML AMP IM ONE (15:37)
[2023-10-21] MEDS ORDERED: ACETAMINOPHEN W/CODEINE #3 1 TAB PO PRN (15:37)
[2023-10-21] MEDS ORDERED: oxyCODONE/ACETAMINOPHEN 5mg/325mg TAB PO PRN (15:37)
[2023-10-21] MEDS ORDERED: bisacodyL 10 MG SUPP PR PRN (15:37)
[2023-10-21] MEDS ORDERED: DIPHTHER/TETAN/PERTUS Vaccine (Tdap, Adol/Adult) 0.5mL IM ONE (15:37)
[2023-10-21] MEDS ORDERED: OXYTOCIN 30 UNITS/NSS 30 UNITS/500 ML BAG IV PRN (15:37)
[2023-10-21] MEDS ORDERED: BENZOCAINE 20% SPRY 85 APPLN/85 GM CAN EXT PRN (15:37)
[2023-10-21] MEDS ORDERED: HYDROCORTISONE ACETATE 25 MG SUPP PR PRN (15:37)
[2023-10-21] MEDS ORDERED: CARBOPROST TROMETHAMINE 250 MCG/ML AMPUL IM ONE (15:37)
--- NOTE | 2023-10-21 15:44 | Delivery Summary ---
Vaginal Delivery Summary Date of Service October 21, 2023 Vaginal Delivery Summary Patient's been followed in the office for care and delivery. Patient is well dated. Admitted at 41 weeks gestation for induction of labor for postterm. Given the series of oral Cytotec eventually IV Pitocin. Then epidural for pain control. At the time of delivery patient was 41 weeks and 1 day gestation. Patient went to full dilatation pushed out a live female via direct occiput anterior position over an intact perineum. Infant was suctioned through the mouth and the nose. Some difficulty delivering the shoulders. This was done with a combination of flexion of the maternal thighs to the chest. Some suprapubic pressure. Anterior shoulder then dislodged and was delivered without difficulty. Cord was allowed to pulse for 60 seconds while the mother breathe oxygen. Cord was then clamped cut by the father. Cord blood was taken. The placenta was removed intact. We had trouble with uterine atony after removal of placenta we had some heavy bleeding. We responded by giving her IM Methergine. Increasing the pit from 333 mg an hour to 999 mg an hour. And also giving her shot of Hemabate IM. Following these corrective measures the uterus contracted nicely and the bleeding stopped. Inspection of the perineum revealed a second-degree laceration. The vaginal mucosa was approximated to out and beyond the hymenal ring with Vicryl. 2 deep sutures were used to approximate the perineal body. Separate sutures used approximate the area of the rectal sphincter capsule. A deep suture was used to approximate the bulbocavernosus muscle. And a running subcuticular sutures used approximate the perineal skin edges. Superficial laceration of the left labia minora was also approximated with a running 3-0 chromic. Following this hemostasis was good sponges were removed from the vagina. Vaginal examination revealed the lacerations to be intact. Calculated blood loss was 525 mL.
--- NOTE | 2023-10-21 15:45 | Anesthesia Procedure Note ---
Date of Service October 21, 2023 Anesthesia Post Epidural Note Vital Signs Vital Signs: Temp Pulse Resp BP Pulse Ox 98.4 F 87 20 113/69 96 10/21/23 14:54 10/21/23 15:38 10/21/23 14:54 10/21/23 15:33 10/21/23 15:38 Pain Intensity Abdomen: Pain Intensity: 5 Notes Mental Status: alert / awake / arousable and participated in evaluation Nausea / Vomiting: adequately controlled Pain: adequately controlled Airway Patency, RR, SpO2: stable & adequate BP & HR: stable & adequate Hydration State: stable & adequate Neuraxial Anesthesia: was administered and sensory block is resolving Anesthetic Complications: no major complications apparent and Pt Satisfied with anesthetic care Epidural: Removed without complications and With tip intact
[2023-10-21] MEDS: ePHEDrine sulfate 50 MG/ML AMP ONE (16:44)
[2023-10-21] MEDS: IBUPROFEN 600 MG TAB PO PRN (16:48)
[2023-10-21] MEDS: ACETAMINOPHEN 325 MG TAB PO PRN (20:01)
[2023-10-21] MEDS: DOCUSATE SODIUM 100 MG CAP PO SCH (21:31)
[2023-10-22 07:09] LABS: Hemoglobin 8.4 g/dl (12.0-16.0); Mean Corpuscular Hemoglobin 29.8 pg (25.0-34.0); Mean Corpuscular Hgb Conc 32.3 g/dL (32.0-36.0); Mean Corpuscular Volume 92.2 fL (80.0-100.0); Mean Platelet Volume 11.4 fL (9.4-12.4); Platelet Count 179 K/uL (130-400); RDW Standard Deviation 46.6 fL (36.4-46.3); Red Blood Count 2.82 M/uL (4.20-5.40); White Blood Count 11.65 K/ul (4.8-10.8)
[2023-10-22] MEDS: PRENATAL VITAMIN 1 TAB PO SCH (08:37)
--- NOTE | 2023-10-22 09:43 | Obstetrical Progress Note ---
Date of Service October 22, 2023 Assessment & Plan Admission and Anticipated Discharge Date Admission Date: October 20, 2023 OB Progress Note abdomen soft and non tender no calf tenderness ambulating well vaginal bleeding scant hgb 8.4 Results & Data Vital Signs (Past 12 Hours) Vital Signs Temp Pulse Resp BP Pulse Ox O2 Del Method 10/22/23 08:00 36.3 C L 72 16 105/66 98 Room Air 10/22/23 03:05 36.9 C 70 16 101/56 L 10/21/23 23:30 36.8 C 75 18 112/61
[2023-10-22] MEDS: bisacodyL 5 MG TABEC PO SCH (20:46)
[2023-10-22] MEDS: ACETAMINOPHEN 325 MG TAB PO PRN (20:47)
[2023-10-23 06:05] LABS: Hematocrit (blood only) 24.9 % (37.0-47.0); Hemoglobin 7.9 g/dl (12.0-16.0)
--- NOTE | 2023-10-23 08:47 | Obstetrical Progress Note ---
Date of Service October 23, 2023 Subjective Ambulation: ambulating normally Voiding: no voiding problems Passing Gas:: Yes Diet Tolerance:: regular diet Lochia:: Small Feeding Type:: breast feeding Current Pain Level(1-10): 0 doing well. plans for d/c Physical Exam Constitutional WD/WN, vitals as above Gastrointestinal (Abdomen) Inspection/Auscultation: abdomen normal to inspection abdomen soft and non-tender. fundus firm below U Musculoskeletal Extremities: extremities normal to inspection Skin no rashes, warm and dry Neurologic patellar DTR's 2+ bilat, sensation intact Psychiatric A+Ox3, euthymic affect Results & Data Vital Signs (Past 12 Hours) Vital Signs Temp Pulse Resp BP Pulse Ox O2 Del Method 10/23/23 00:00 36.6 C 68 16 106/65 96 Room Air Laboratory Results 10/20/23 10/20/23 10/22/23 09:00 Unknown 06:53 WBC 8.03 11.65 H RBC 3.48 L 2.82 L Hgb 10.3 L 8.4 L Hct 31.6 L 26.0 L MCV 90.8 92.2 MCH 29.6 29.8 MCHC 32.6 32.3 RDW Std Deviation 45.7 46.6 H RDW Coeff of Pedro 13.9 14.0 Plt Count 216 179 MPV 11.4 11.4 Treponema pallidum Ab Negative C.trachomatis RNA Not Detected N.gonorrhoeae RNA Not Detected 10/23/23 05:40 WBC RBC Hgb 7.9 L Hct 24.9 L MCV MCH MCHC RDW Std Deviation RDW Coeff of Pedro Plt Count MPV Treponema pallidum Ab C.trachomatis RNA N.gonorrhoeae RNA
== END 2023-10-23 12:05 | disposition home or self-care (01) | DRG 807 ==
LOC: 4S1 07:51 → 4E2 10-21 18:00